=== PATIENT | female | born 1950 | race Caucasian/White ===

== ENCOUNTER 2019-08-17 13:22 | Emergency (ER) | payer BC, MEDICARE ==
[2019-08-17] MEDS ORDERED: Sodium Chloride 0.9% 10 ML Syringe FLUSH PRN (13:28)
--- NOTE | 2019-08-17 14:01 | EDM.PDOC ---
ED HPI GENERAL MEDICAL PROBLEM - General Chief Complaint: Neurological Problem Stated Complaint: STROKE Time Seen by Provider: 08/17/19 13:25 Source of Information: Reports: Family, Old Records History Limitations: Reports: Altered Mental Status - History of Present Illness INITIAL COMMENTS - FREE TEXT/NARRATIVE: 69 yo female was brought in by her for a presumed CVA with decreased use of the R arm/hand. This began about 11 am today. Upon arrival she went into a generalized seizure. says until arrival here in the ER she was otherwise normal since 11 am with the exception of the R arm/hand. No hx of seizures. Has generally been healthy in past. Onset: Today, Sudden Onset Date: 08/17/19 Onset Time: 11:00 Duration: Hour(s):, Constant Location: Reports: Upper Extremity, Right Quality: Reports: Other (pain not reported) Severity: Moderate Improves with: Reports: None Worsens with: Reports: Other (unknown) Context: Reports: Other (See HPI) Associated Symptoms: Reports: No Other Symptoms. Denies: Confusion, Chest Pain , Diaphoresis, Fever/Chills, Headaches, Nausea/Vomiting, Shortness of Breath Treatments COLORIST PHOTOGRAPHY: Reports: Other (see below) (none) - Related Data Allergies Allergy/AdvReac Type Severity Reaction Status Date / Time Penicillins Allergy Unknown Cannot Verified 08/09/16 16:11 Remember Home Meds: Home Meds Losartan [Cozaar] 50 mg PO DAILY 08/31/13 [History] Cholecalciferol (Vitamin D3) [Vitamin D] 1,000 units PO DAILY 04/08/15 [History] Multivitamin with Minerals [Multiple Vitamin] 1 tab PO DAILY 04/08/15 [History] Past Medical History HEENT History: Reports: Impaired Vision [place] History: Reports: Spontaneous Musculoskeletal History: Reports: Fracture Other Musculoskeletal History: knee Neurological History: Reports: Migraines Other Dermatologic History: spot on left cheek-benign - Infectious Disease History Infectious Disease History: Reports: Chicken Pox - Past Surgical History Other Cardiovascular Surgeries/Procedures: tetrology of fillot Social & Family History - Tobacco Use Smoking Status *Q: Former Smoker Used Tobacco, but Quit: Yes Month/Year Tobacco Last Used: 06/1969 - Caffeine Use Caffeine Use: Reports: None - Recreational Drug Use Recreational Drug Use: No ED ROS GENERAL - Review of Systems Review Of Systems: See Below (Hx per ) Constitutional: Reports: No Symptoms HEENT: Reports: No Symptoms Respiratory: Reports: No Symptoms Cardiovascular: Reports: No Symptoms Endocrine: Reports: No Symptoms GI/Abdominal: Reports: No Symptoms : Reports: No Symptoms Musculoskeletal: Reports: No Symptoms Skin: Reports: No Symptoms Neurological: Reports: Tremors (R hand today), Other (R arm/hand not working, not able to control since 11 am today). Denies: Confusion, Dizziness, Headache , Seizure (until arrival in the ER), Trouble Speaking, Difficulty Walking ED EXAM, NEURO - Physical Exam Exam: See Below Exam Limited By: No Limitations General Appearance: Severe Distress (generalized seizure followed by brief apnea with some transiet cyanosis) Eye Exam: Bilateral Eye: Normal Inspection Ears: Normal External Exam, Normal Canal, Normal TMs Nose: Normal Inspection, No Blood Throat/Mouth: Normal Inspection, Normal Lips, Normal Oropharynx, No Airway Compromise Head Exam: Atraumatic, Normocephalic Neck: Normal Inspection Respiratory/Chest: No Respiratory Distress, Lungs Clear, Normal Breath Sounds, No Accessory Muscle Use Cardiovascular: Regular Rate, Rhythm, No Edema GI/Abdominal: Normal Bowel Sounds, Soft, Non-Tender, No Distention Neurological: Other (had a self-limited generalized seizure, after resolution is confused, but no longer manifesting any focal deficits. ) Back Exam: Normal Inspection Extremities: Normal Inspection, Normal Range of Motion, Non-Tender, No Pedal Edema Skin Exam: Warm, Dry, Intact, Normal Color, No Rash EKG INTERPRETATION EKG Date: 08/17/19 Time: 13:40 Rhythm: NSR Rate (Beats/Min): 115 [place]: Normal P-Wave: Present QRS: RBBB ST-T: Depressed (lateral leads) QT: Normal Comparison: NA - No Prior EKG Course - Vital Signs Text/Narrative:: Case discussed with neurology, Dr. Tavera @ 1500h. Did well here, if neurologically fully back to normal per during her ER course. Last Recorded V/S: Last Vital Signs Temp 35.8 C L 08/17/19 13:57 Pulse 102 H 08/17/19 14:46 Resp 18 08/17/19 14:46 BP 123/62 08/17/19 14:46 Pulse Ox 100 08/17/19 14:46 - Orders/Labs/Meds Orders: Active Orders 24 hr Category Date Time Status Cardiac Monitoring [RC] .As Directed Care 08/17/19 13:29 Active EKG Documentation Completion [RC] ASDIRECTED Care 08/17/19 13:30 Active Oxygen Therapy Adult [Oxygen Therapy, ED] [RC] Care 08/17/19 13:29 Active ASDIRECTED Urinary Catheter Assessment [RC] ASDIRECTED Care 08/17/19 13:34 Inactive UA W/MICROSCOPIC [URIN] Stat Lab 08/17/19 13:28 Ordered Sodium Chloride 0.9% [Saline Flush] Med 08/17/19 13:28 Active 10 ml FLUSH ASDIRECTED PRN Saline Lock Insert [OM.PC] Routine Oth 08/17/19 13:28 Ordered EKG 12 Lead [EK] Routine Ther 08/17/19 13:29 Ordered Medication Orders Sodium Chloride (Saline Flush) 10 ml FLUSH ASDIRECTED PRN PRN Reason: Keep Vein Open Last Admin: 08/17/19 13:54 Dose: 10 ml Labs: Laboratory Tests 08/17/19 08/17/19 08/17/19 Range/Units 13:30 13:35 13:35 WBC 14.6 H (4.5-11.0) K/uL RBC 3.85 (3.30-5.50) M/uL Hgb 12.6 (12.0-15.0) g/dL Hct 39.0 (36.0-48.0) % MCV 101 H (80-98) fL MCH 33 H (27-31) pg MCHC 32 (32-36) % Plt Count 244 (150-400) K/uL Sodium 141 (140-148) mmol/L Potassium 3.0 L (3.6-5.2) mmol/L Chloride 101 (100-108) mmol/L Carbon Dioxide 14 L D (21-32) mmol/L Anion Gap 29.0 H (5.0-14.0) mmol/L BUN 8 D (7-18) mg/dL Creatinine 0.8 (0.6-1.0) mg/dL Est Cr Clr Drug Dosing TNP Estimated GFR (MDRD) > 60 (>60) Glucose 160 H (74-106) mg/dL Calcium 9.4 (8.5-10.1) mg/dL Magnesium 2.1 (1.8-2.4) mg/dL Troponin I < 0.017 (0.000-0.056) ng/mL Meds: Medications Generic Name Dose Route Start Last Admin Trade Name Freq PRN Reason Stop Dose Admin Sodium Chloride 10 ml 08/17/19 13:28 08/17/19 13:54 Saline Flush FLUSH 10 ml ASDIRECTED PRN Administration Keep Vein Open Discontinued Medications Generic Name Dose Route Start Last Admin Trade Name Freq PRN Reason Stop Dose Admin Acetaminophen 1,000 mg 08/17/19 14:19 08/17/19 14:35 Tylenol Extra Strength PO 08/17/19 14:20 1,000 mg ONETIME ONE Administration Potassium Chloride 20 meq/ 100 mls @ 50 mls/hr 08/17/19 14:23 08/17/19 14:40 Premix IV 08/17/19 16:22 50 mls/hr ONETIME ONE Administration Levetiracetam 750 mg/ Sodium 107.5 mls @ 400 mls/hr 08/17/19 14:45 08/17/19 14:41 Chloride IV 08/17/19 15:01 400 mls/hr ONETIME ONE Administration Potassium Chloride 40 meq 08/17/19 14:13 08/17/19 14:35 Potassium Chloride PO 08/17/19 14:14 40 meq ONETIME ONE Administration - Radiology Interpretation Free Text/Narrative:: Head CT -nothing acute, old cyst CT Results Date: 08/17/19 CT Results Time: 14:10 Departure - Departure Time of Disposition: 16:40 Disposition: Home, Self-Care 01 Condition: Fair Clinical Impression: Seizure, Hypokalemia - Discharge Information *PRESCRIPTION DRUG MONITORING PROGRAM REVIEWED*: No *COPY OF PRESCRIPTION DRUG MONITORING REPORT IN PATIENT RANDEE: No Instructions: Hypokalemia, Seizure, Adult, [id number] Referrals: Vinay Tavera MD [Primary Care Provider] - Forms: ED Department Discharge Additional Instructions: Take Keppra 500 mg every 12 hrs. F/U with your provider regarding getting a neurological referral. Return as needed. Eat more foods rich in potassium. Sepsis Event Note - Focused Exam Vital Signs: Vital Signs Temp Pulse Resp BP Pulse Ox Pulse Ox 08/17/19 14:46 102 H 18 123/62 100 08/17/19 13:57 35.8 C L 110 H 21 H 146/56 H 99 99 08/17/19 13:53 110 H 21 H 146/56 H 99 08/17/19 13:25 35.8 C L 126 H 15 135/43 L 98 Date Exam was Performed: 08/17/19 Time Exam was Performed: 16:33 - My Orders Last 24 Hours: My Active Orders 08/17/19 13:28 UA W/MICROSCOPIC [URIN] Stat Sodium Chloride 0.9% [Saline Flush] 10 ml FLUSH ASDIRECTED PRN Saline Lock Insert [OM.PC] Routine 08/17/19 13:29 Cardiac Monitoring [RC] .As Directed Oxygen Therapy Adult [Oxygen Therapy, ED] [RC] ASDIRECTED EKG 12 Lead [EK] Routine 08/17/19 13:30 EKG Documentation Completion [RC] ASDIRECTED 08/17/19 13:34 Urinary Catheter Assessment [RC] ASDIRECTED - Assessment/Plan Last 24 Hours: My Active Orders 08/17/19 13:28 UA W/MICROSCOPIC [URIN] Stat Sodium Chloride 0.9% [Saline Flush] 10 ml FLUSH ASDIRECTED PRN Saline Lock Insert [OM.PC] Routine 08/17/19 13:29 Cardiac Monitoring [RC] .As Directed Oxygen Therapy Adult [Oxygen Therapy, ED] [RC] ASDIRECTED EKG 12 Lead [EK] Routine 08/17/19 13:30 EKG Documentation Completion [RC] ASDIRECTED 08/17/19 13:34 Urinary Catheter Assessment [RC] ASDIRECTED
--- NOTE | 2019-08-17 14:03 | CT ---
Head wo Cont CLINICAL HISTORY: CVA, seizure COMPARISON: 2017 TECHNIQUE: Transverse scans were obtained from the base of the skull through the vertex without IV contrast on a multislice, multidetector CT scanner. A scribe dose FINDINGS: There is a large cystic focus in the left the cerebral hemisphere which may represent an arachnoid cyst. This is separate from the left ventricle. This is present and unchanged compared to 2017. There is no mass effect, hemorrhage, or extraaxial collection. The basal cisterns and sulci over the convexities are mildly prominent. The left lateral ventricles are slightly depressed the due to the cystic focus IMPRESSION: Large stable cystic focus in the left cerebral hemisphere. This likely represents an arachnoid cyst. It is unchanged from 2014 and 2017 studies No new lesions seen
[2019-08-17] MEDS ORDERED: Potassium Chloride 10 MEQ Cap.ER PO ONE (14:13)
[2019-08-17] MEDS ORDERED: Acetaminophen 500 MG Tab PO ONE (14:19)
[2019-08-17] MEDS ORDERED: Potassium Chloride 20 MEQ in Premix Bag 1 BAG IV ONE (14:23)
[2019-08-17 14:47] VITALS: BP 123/62; PULSE 102
== END 2019-08-17 17:02 | disposition home or self-care (01) ==
LOC: JP.ED 13:22
DX: R56.9 Unspecified convulsions (principal); E87.6 Hypokalemia; Z88.0 Allergy status to penicillin; Z87.891 Personal history of nicotine dependence
CPT/HCPCS: 36415; 70450; 80048; 83735; 84484; 85027; 93005; 96365; 96366; 96367; 99284; 99285; A9270; J1953; J3480; J7050; 93010

== ENCOUNTER 2020-01-07 09:25 | Emergency (ER) | payer MEDICARE ==
--- NOTE | 2020-01-07 09:44 | EDM.PDOC ---
ED HPI GENERAL MEDICAL PROBLEM - General Chief Complaint: Neurological Problem Stated Complaint: MEDICAL VIA [place] Time Seen by Provider: 01/07/20 09:35 Source of Information: Reports: EMS, Family History Limitations: Reports: Other (expressive aphasia) - History of Present Illness INITIAL COMMENTS - FREE TEXT/NARRATIVE: left home at 7:10 am today and returned at about 8:43am to find his down. EMS was called and found her to have difficulty with expressing herself. Seems to indicate a NUNEZ. BP low. BS OK. Sinus tach per EKG. Recent R shoulder surgery at [facility] so does not yet have a full ROM. Patient states she has never had a seizure and is no longer on Keppra. 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 Onset: Today Onset Date: 01/07/20 Onset Time: 07:10 (? up to 0843h) Duration: Minutes:, Getting Worse Location: Reports: Head Quality: Reports: Ache Severity: Moderate Improves with: Reports: None Worsens with: Reports: Other (? time) Context: Reports: Other (See HPI) Associated Symptoms: Reports: Headaches, Other (neuro deficit) Treatments QUARRY PLUG AND FEATHER DRILLER: Reports: Other (see below) (None) Left Temporal Headache Pain Score (Numeric/FACES): 8 - Related Data Allergies Allergy/AdvReac Type Severity Reaction Status Date / Time Penicillins Allergy Unknown Cannot Verified 08/09/16 16:11 Remember Home Meds: Home Meds Losartan [Cozaar] 50 mg PO DAILY 08/31/13 [History] Cholecalciferol (Vitamin D3) [Vitamin D] 1,000 units PO DAILY 04/08/15 [History] Multivitamin with Minerals [Multiple Vitamin] 1 tab PO DAILY 04/08/15 [History] Past Medical History HEENT History: Reports: Impaired Vision [employer] History: Reports: Spontaneous Musculoskeletal History: Reports: Fracture Other Musculoskeletal History: knee Neurological History: Reports: Migraines Other Dermatologic History: spot on left cheek-benign - Infectious Disease History Infectious Disease History: Reports: Chicken Pox - Past Surgical History Other Cardiovascular Surgeries/Procedures: tetrology of fillot Social & Family History - Caffeine Use Caffeine Use: Reports: None ED ROS GENERAL - Review of Systems Review Of Systems: Comprehensive ROS is negative, except as noted in HPI. (expressive aphasia) Constitutional: Reports: No Symptoms HEENT: Reports: No Symptoms Neurological: Reports: Headache (L sided), Change in Speech (expressive aphasia for EMS, clearing in the ER) Psychiatric: Reports: No Symptoms ED EXAM, NEURO - Physical Exam Exam: See Below Exam Limited By: No Limitations General Appearance: Alert, WD/WN, No Apparent Distress, Thin Eye Exam: Right Eye: Proptosis, Bilateral Eye: Abnormal EOM Ears: Normal External Exam, Normal Canal, Hearing Grossly Normal, Normal TMs Nose: Normal Inspection, No Blood Throat/Mouth: Normal Inspection, Normal Lips, Normal Oropharynx, Normal Voice, No Airway Compromise, Other (voice is hoarse, not new. Able to swallow water without choking.) Head Exam: Atraumatic, Normocephalic Neck: Normal Inspection Respiratory/Chest: No Respiratory Distress, Lungs Clear, Normal Breath Sounds, No Accessory Muscle Use Cardiovascular: Regular Rate, Rhythm, No Edema, Tachycardia GI/Abdominal: Normal Bowel Sounds, Soft, Non-Tender, No Distention Neurological: Alert, Normal Mood/Affect, CN II-XII Intact, No Motor/Sensory Deficits, Oriented x 3 Extremities: Normal Inspection, Normal Range of Motion, Non-Tender, No Pedal Edema, Limited Range of Motion (R shoulder only) Psychiatric: Normal Affect, Normal Mood Skin Exam: Warm, Dry, Intact, Normal Color, No Rash EKG INTERPRETATION EKG Date: 01/07/20 Time: 09:45 Rhythm: NSR Rate (Beats/Min): 109 [place]: Normal P-Wave: Present QRS: RBBB ST-T: Normal QT: Normal Comparison: No Change Course - Vital Signs Text/Narrative:: Discussed with stroke neurologist at [facility] twice, the 2nd time @ 1210h. Accepts in transfer. Last Recorded V/S: Last Vital Signs Temp 35.9 C L 01/07/20 09:48 Pulse 110 H 01/07/20 10:32 Resp 20 01/07/20 10:32 BP 139/48 L 01/07/20 10:32 Pulse Ox 100 01/07/20 10:32 - Orders/Labs/Meds Orders: Active Orders 24 hr Category Date Time Status Cardiac Monitoring [RC] .As Directed Care 01/07/20 09:34 Active EKG Documentation Completion [RC] ASDIRECTED Care 01/07/20 09:34 Active UA W/MICROSCOPIC [URIN] Stat Lab 01/07/20 09:34 Ordered Iopamidol [Isovue-370 (76%)] Med 01/07/20 10:45 Active 100 ml IV . DIRECTED Sodium Chloride 0.9% [Saline Flush] Med 01/07/20 10:33 Active 10 ml FLUSH ONETIME PRN EKG 12 Lead [EK] Routine Ther 01/07/20 09:34 Ordered Medication Orders Iopamidol (Isovue-370 (76%)) 100 ml IV . DIRECTED [facility] Last Admin: 01/07/20 11:04 Dose: 100 ml Documented by: ARLETH Sodium Chloride (Saline Flush) 10 ml FLUSH ONETIME PRN PRN Reason: PER RADIOLOGY PROTOCOL Last Admin: 01/07/20 11:04 Dose: 10 ml Documented by: ARLETH Labs: Laboratory Tests 01/07/20 01/07/20 Range/Units 09:40 09:40 WBC 14.6 H (4.5-11.0) K/uL RBC 4.20 (3.30-5.50) M/uL Hgb 13.4 (12.0-15.0) g/dL Hct 40.4 (36.0-48.0) % MCV 96 (80-98) fL MCH 32 H (27-31) pg MCHC 33 (32-36) % Plt Count 147 L (150-400) K/uL Sodium 137 L (140-148) mmol/L Potassium 4.0 (3.6-5.2) mmol/L Chloride 99 L (100-108) mmol/L Carbon Dioxide 25 (21-32) mmol/L Anion Gap 17.0 H (5.0-14.0) mmol/L BUN 16 D (7-18) mg/dL Creatinine 0.9 (0.6-1.0) mg/dL Est Cr Clr Drug Dosing TNP Estimated GFR (MDRD) > 60 (>60) Glucose 199 H (74-106) mg/dL Calcium 9.9 (8.5-10.1) mg/dL Troponin I 0.082 H* (0.000-0.056) ng/mL Meds: Medications Generic Name Dose Route Start Last Admin Trade Name Freq PRN Reason Stop Dose Admin Iopamidol 100 ml 01/07/20 10:45 01/07/20 11:04 Isovue-370 (76%) IV 100 ml . DIRECTED LOS Administration Sodium Chloride 10 ml 01/07/20 10:33 01/07/20 11:04 Saline Flush FLUSH 10 ml ONETIME PRN Administration PER RADIOLOGY PROTOCOL Discontinued Medications Generic Name Dose Route Start Last Admin Trade Name Freq PRN Reason Stop Dose Admin Acetaminophen 1,000 mg 01/07/20 09:53 01/07/20 09:56 Tylenol Extra Strength PO 01/07/20 09:54 1,000 mg ONETIME ONE Administration Sodium Chloride 100 mls @ 3 mls/sec 01/07/20 10:33 01/07/20 11:04 Normal Saline IV 01/07/20 10:34 3 mls/sec ONETIME ONE Administration - Radiology Interpretation Free Text/Narrative:: Head CT scan without contrast-no acute changes CTA head and neck-See report CT Results Date: 01/07/20 CT Results Time: 10:00 Departure - Departure Time of Disposition: 12:30 Disposition: DC/Tfer to Acute Hospital 02 Condition: Fair Clinical Impression: TIA (transient ischemic attack), Elevated troponin, Elevated glucose level Syncope Qualifiers: Syncope type: unspecified Qualified Code(s): R55 - Syncope and collapse - Discharge Information Referrals: PCP,None [Primary Care Provider] - Forms: ED Department Discharge Sepsis Event Note (ED) - Focused Exam Vital Signs: Vital Signs Temp Pulse Resp BP Pulse Ox 01/07/20 10:32 110 H 20 139/48 L 100 01/07/20 10:17 109 H 26 H 139/48 L 100 01/07/20 10:02 109 H 25 H 139/51 L 100 01/07/20 09:48 35.9 C L 111 H 22 H 135/50 L 100 01/07/20 09:47 111 H 29 H 135/50 L 100 01/07/20 09:32 118 H 20 126/64 97 - My Orders Last 24 Hours: My Active Orders 01/07/20 09:34 Cardiac Monitoring [RC] .As Directed EKG Documentation Completion [RC] ASDIRECTED UA W/MICROSCOPIC [URIN] Stat EKG 12 Lead [EK] Routine 01/07/20 10:33 Sodium Chloride 0.9% [Saline Flush] 10 ml FLUSH ONETIME PRN 01/07/20 10:45 Iopamidol [Isovue-370 (76%)] 100 ml IV . DIRECTED - Assessment/Plan Last 24 Hours: My Active Orders 01/07/20 09:34 Cardiac Monitoring [RC] .As Directed EKG Documentation Completion [RC] ASDIRECTED UA W/MICROSCOPIC [URIN] Stat EKG 12 Lead [EK] Routine 01/07/20 10:33 Sodium Chloride 0.9% [Saline Flush] 10 ml FLUSH ONETIME PRN 01/07/20 10:45 Iopamidol [Isovue-370 (76%)] 100 ml IV . DIRECTED
[2020-01-07] MEDS ORDERED: Acetaminophen 500 MG Tab PO ONE (09:53)
--- NOTE | 2020-01-07 10:14 | CT ---
Head wo Cont CLINICAL HISTORY: Strokelike symptoms COMPARISON: 08/17/2019 and 08/09/2016 TECHNIQUE: Transverse scans were obtained from the base of the skull through the vertex without IV contrast on a multislice, multidetector CT scanner. Prescribed dose FINDINGS: There is a large cyst in the high left parietal lobe measuring 7.3 x 4.7 x 5.4 cm. This is essentially unchanged since July 2019. There has been interval increase in size since 2017.. This does cause some downward displacement of the left lateral ventricle. This appearance is unchanged since prior study. There is no shift of the midline. There is no mass effect, hemorrhage, or extraaxial collection. The basal cisterns and sulci over the convexities are mildly prominent. IMPRESSION: Stable, large left parietal arachnoid cyst when compared to July 2019 There has been some interval growth since 2017 Age-related atrophy
[2020-01-07] MEDS ORDERED: Sodium Chloride 0.9% 10 ML Syringe FLUSH PRN (10:33)
[2020-01-07] MEDS ORDERED: Sodium Chloride 0.9% 100 ML IV ONE (10:33)
[2020-01-07] MEDS ORDERED: Iopamidol 755 Mg/ML 100 ML Bottle IV SCH (10:45)
[2020-01-07 10:51] VITALS: PULSE 110
--- NOTE | 2020-01-07 11:46 | CT ---
Ang Neck, CLINICAL HISTORY: Expressive aphasia TECHNIQUE: Multiple axial images were obtained through the neck without and with the IV infusion of iodinated contrast. From these images sagittal, coronal, and 3D reconstructions of the aortic arch and carotids were obtained and viewed on a dedicated and independent workstation. NASCET criteria is used. Auto dosage reduction and iterative reconstruction techniques employed. FINDINGS: The proximal brachycephalic vessels are mildly tortuous. The innominate right subclavian and right the common carotid arteries have normal course and caliber. Right vertebral artery is patent the along its length to the basilar artery. Left common carotid has a normal course and contour. Left subclavian artery is occluded in its proximal portion. There is flow from the left thyrocervical trunk. The the proximal portion of the left vertebral artery is not identified. There is moderate streak artifact from brachiocephalic vein contrast. There is some calcified plaque in both carotid bifurcations. There is no significant ICA stenosis on either side. There is [id number] right ECA stenosis at the origin. 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 There appears to be occlusion of the proximal vertebral artery. This area is moderately obscured by streak artifact from dense contrast in the brachycephalic vein. Findings should be correlated with Doppler study. Mild plaque in both carotid bifurcations with no significant ICA stenosis Mild right ECA stenosis Ang Neck, Ang Head CLINICAL HISTORY: Syncope, expressive aphasia. COMPARISON: None TECHNIQUE: Multiple volume rendered and MIP 3D reconstructions were generated from source images obtained on a spiral scanner before and after intravenous iodinated contrast enhancement . Auto dosage reduction and iterative reconstruction techniques employed. FINDINGS: Internal carotid arteries: There is some hard plaque in the carotid siphons bilaterally. Anterior cerebral arteries: There is a small right A1 segment. There is a single A2 segment. There is a patent anterior communicating artery Middle cerebral arteries: Normal course and contour Posterior cerebral arteries: There is persistent circulation bilaterally. Vertebral/basilar arteries: There are small vertebral and a small basilar artery which services the cerebellar arteries IMPRESSION: Calcified plaque in both carotid siphons Persistent circulation bilaterally Small vertebrobasilar system services the cerebellar arteries Large arachnoid cyst left parietal lobe described on CT
[2020-01-07 12:35] VITALS: BP 115/94
== END 2020-01-07 14:05 ==
LOC: JP.ED 09:25
DX: G45.9 Transient cerebral ischemic attack, unspecified (principal); R79.89 Other specified abnormal findings of blood chemistry; R73.09 Other abnormal glucose; Z88.0 Allergy status to penicillin; Z79.899 Other long term (current) drug therapy
CPT/HCPCS: 36415; 70450; 70496; 70498; 80048; 81001; 84484; 85027; 93005; 99285; A9270; J7050; Q9967; 93010

== ENCOUNTER 2020-04-20 09:13 | Emergency (ER) | payer MEDICARE ==
[2020-04-20] MEDS ORDERED: Sodium Chloride 0.9% 10 ML Syringe FLUSH PRN (09:43)
[2020-04-20] MEDS ORDERED: Sodium Chloride 0.9% 10 ML Syringe FLUSH ONE (10:11)
--- NOTE | 2020-04-20 10:12 | EDM.PDOC ---
ED HPI GENERAL MEDICAL PROBLEM - General Chief Complaint: Headache Stated Complaint: DIZZY,HEADACHES Time Seen by Provider: 04/20/20 09:38 Source of Information: Reports: Patient, Old Records History Limitations: Reports: No Limitations - History of Present Illness INITIAL COMMENTS - FREE TEXT/NARRATIVE: He is a 70-year-old female presenting to the ED for evaluation of severe he adache on the left side accompanied by right-sided weakness that started at 7 AM this morning. Patient was in her usual state of health when her symptoms began. She had a history of a TIA involving the same distribution back in December with a work-up and has been on a baby aspirin ever since. She stated that she was having difficulty walking because of the right leg weakness. She noticed that her headache has significantly worsened since the onset of her symptoms. While in the ED, she noted that she cannot see anything in the right visual field. She was not aware of this prior to the ED. She is complaining of a significant constant headache associated with nausea but no vomiting. Onset: Today, Sudden Location: Reports: Head Quality: Reports: Throbbing Improves with: Reports: None Worsens with: Reports: None Associated Symptoms: Reports: Headaches, Weakness - Related Data Allergies Allergy/AdvReac Type Severity Reaction Status Date / Time Penicillins Allergy Unknown Cannot Verified 08/09/16 16:11 Remember Home Meds: Home Meds Cholecalciferol (Vitamin D3) [Vitamin D] 1,000 units PO DAILY 04/08/15 [History] Multivitamin with Minerals [Multiple Vitamin] 1 tab PO DAILY 04/08/15 [History] Aspirin 81 mg PO DAILY 04/20/20 [History] Past Medical History HEENT History: Reports: Impaired 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 Musculoskeletal History: Reports: Fracture Other Musculoskeletal History: knee Neurological History: Reports: Migraines Other Dermatologic History: spot on left cheek-benign - Infectious Disease History Infectious Disease History: Reports: Chicken Pox - Past Surgical History Other Cardiovascular Surgeries/Procedures: tetrology of fillot Musculoskeletal Surgical History: Reports: Shoulder Replacement Social & Family History - Tobacco Use Tobacco Use Status *Q: Never Tobacco User - Caffeine Use Caffeine Use: Reports: Coffee ED ROS GENERAL - Review of Systems Review Of Systems: See Below Constitutional: Reports: No Symptoms HEENT: Reports: Vision Change (Unable to see anything on the right side) Respiratory: Reports: No Symptoms Cardiovascular: Reports: No Symptoms Endocrine: Reports: No Symptoms GI/Abdominal: Reports: Nausea : Reports: No Symptoms Musculoskeletal: Reports: No Symptoms Skin: Reports: No Symptoms Neurological: Reports: Headache (Severe left-sided), Difficulty Walking, Weakness (Right-sided upper and lower extremity) Psychiatric: Reports: No Symptoms Hematologic/Lymphatic: Reports: No Symptoms Immunologic: Reports: No Symptoms - Physical Exam Exam: See Below Exam Limited By: No Limitations General Appearance: Alert, Anxious, Mild Distress Eye Exam: Bilateral Eye: PERRL Throat/Mouth: Normal Inspection, Normal Lips, Normal Teeth, Normal Gums, Normal Oropharynx, Normal Voice, No Airway Compromise Head Exam: Atraumatic, Normocephalic Neck: Normal Inspection, Supple, Non-Tender, Full Range of Motion, Carotid Bruit (Left-sided) Respiratory/Chest: No Respiratory Distress, Lungs Clear, Normal Breath Sounds, No Accessory Muscle Use, Chest Non-Tender Cardiovascular: Normal Peripheral Pulses, Regular Rate, Rhythm, No Edema, No Gallop, No JVD, No Murmur, No Rub, Systolic Murmur (3/6 holosystolic murmur heard at the apex and left anterior chest consistent with mitral regurgitation.) GI/Abdominal: Normal Bowel Sounds, Soft, Non-Tender, No Organomegaly, No Distention, No Abnormal Bruit, No Mass, Pelvis Stable Neuro Exam (Abbreviated): Alert, Oriented, CN II-XII Intact, Normal Cognition, Sensory/Motor Deficit (Right upper and lower extremity weakness), Other (Right homonimous hemianopsia) Back Exam: Normal Inspection, Full Range of Motion Extremities: Normal Inspection, Normal Range of Motion, Non-Tender, No Pedal Edema, Normal Capillary Refill Psychiatric: Normal Affect, Normal Mood Skin Exam: Warm, Dry, Intact, Normal Color, No Rash #1 Interpretation EKG Date: 04/20/20 Time: 10:02 Rhythm: NSR Rate (Beats/Min): 96 [place]: Normal P-Wave: Enlarged QRS: RBBB ST-T: Normal QT: Prolonged Course - Vital Signs Last Recorded V/S: Last Vital Signs Temp 36.6 C 04/20/20 09:21 Pulse 94 04/20/20 11:16 Resp 21 H 04/20/20 11:16 BP 106/57 L 04/20/20 11:16 Pulse Ox 95 04/20/20 11:16 - Orders/Labs/Meds Orders: Active Orders 24 hr Category Date Time Status EKG Documentation Completion [RC] ASDIRECTED Care 04/20/20 09:43 Active Iopamidol [Isovue-370 (76%)] Med 04/20/20 10:15 Active 100 ml IV . DIRECTED Sodium Chloride 0.9% [Normal Saline] 100 ml Med 04/20/20 10:15 Active IV ASDIRECTED Sodium Chloride 0.9% [Saline Flush] Med 04/20/20 09:43 Active 10 ml FLUSH ASDIRECTED PRN PT Screening [OM.PC] Routine Oth 04/20/20 09:40 Active Saline Lock Insert [OM.PC] Routine Oth 04/20/20 09:43 Ordered EKG 12 Lead [EK] Routine Ther 04/20/20 09:42 Ordered Medication Orders Sodium Chloride (Normal Saline) 100 mls @ 3.5 mls/sec IV ASDIRECTED LOS Stop: 04/20/20 12:00 Last Admin: 04/20/20 10:17 Dose: 4 mls/sec Documented by: TEE Iopamidol (Isovue-370 (76%)) 100 ml IV . DIRECTED LOS Last Admin: 04/20/20 10:16 Dose: 100 ml Documented by: TEE Sodium Chloride (Saline Flush) 10 ml FLUSH ASDIRECTED PRN PRN Reason: Keep Vein Open Last Admin: 04/20/20 10:07 Dose: 10 ml Documented by: [id number] Labs: Laboratory Tests 04/20/20 04/20/20 04/20/20 Range/Units 10:25 10:25 10:25 WBC 11.5 H (4.5-11.0) K/uL RBC 3.55 (3.30-5.50) M/uL Hgb 11.0 L D (12.0-15.0) g/dL Hct 34.6 L (36.0-48.0) % MCV 98 (80-98) fL MCH 31 (27-31) pg MCHC 32 (32-36) % Plt Count 202 (150-400) K/uL Neut % (Auto) 91 H (36-66) % Lymph % (Auto) 6 L (24-44) % [place] % (Auto) 3 (2-6) % Eos % (Auto) 0 L (2-4) % Baso % (Auto) 0 (0-1) % APTT 22.2 L (27.0-36.0) sec Sodium 133 L (140-148) mmol/L Potassium 3.8 (3.6-5.2) mmol/L Chloride 99 L (100-108) mmol/L Carbon Dioxide 27 (21-32) mmol/L Anion Gap 10.8 (5.0-14.0) mmol/L BUN 14 (7-18) mg/dL Creatinine 0.7 (0.6-1.0) mg/dL Est Cr Clr Drug Dosing 52.78 mL/min Estimated GFR (MDRD) > 60 (>60) Glucose 130 H (74-106) mg/dL Calcium 8.8 (8.5-10.1) mg/dL Total Bilirubin 0.2 (0.2-1.0) mg/dL AST 29 (15-37) U/L ALT 21 (12-78) U/L Alkaline Phosphatase 46 (46-116) U/L Total Protein 6.0 L (6.4-8.2) g/dL Albumin 3.2 L (3.4-5.0) g/dL Globulin 2.8 (2.3-3.5) g/dL Albumin/Globulin Ratio 1.1 L (1.2-2.2) Meds: Medications Generic Name Dose Route Start Last Admin Trade Name Freq PRN Reason Stop Dose Admin Sodium Chloride 100 mls @ 3.5 mls/sec 04/20/20 10:15 04/20/20 10:17 Normal Saline IV 04/20/20 12:00 4 mls/sec ASDIRECTED LOS Administration Iopamidol 100 ml 04/20/20 10:15 04/20/20 10:16 Isovue-370 (76%) IV 100 ml . DIRECTED LOS Administration Sodium Chloride 10 ml 04/20/20 09:43 04/20/20 10:07 Saline Flush FLUSH 10 ml ASDIRECTED PRN Administration Keep Vein Open Discontinued Medications Generic Name Dose Route Start Last Admin Trade Name Freq PRN Reason Stop Dose Admin Hydromorphone HCl 0.5 mg 04/20/20 11:23 04/20/20 11:28 Dilaudid IVPUSH 04/20/20 11:24 0.5 mg ONETIME ONE Administration Ondansetron HCl 4 mg 04/20/20 11:23 04/20/20 11:28 Zofran IVPUSH 04/20/20 11:24 4 mg ONETIME ONE Administration Sodium Chloride 10 ml 04/20/20 10:11 04/20/20 10:17 Saline Flush FLUSH 04/20/20 10:12 10 ml ONETIME ONE Administration - Re-Assessments/Exams Free Text/Narrative Re-Assessment/Exam: 04/20/20 11:52 I discussed the case with Dr. Taveras from neurosurgery at [facility] who sees this patient ongoing. He reviewed the images that were obtained today including the CT angio of the head and neck and CT of the brain without. He does not feel that the arachnoid cyst has enlarged enough to account for her symptoms, however, he does not feel that she needs to emergently come over today and recommends that she follow-up with him in the clinic on Saturday. We will arrange that follow-up appointment for the patient. In the meantime, the patient received Dilaudid 0.5 mg IV and Zofran 4 mg IV with significant improvement in her headache. I did discuss with the neurosurgeon the fact that the patient has an acute right-sided homonymous hemianopsia and right-sided weakness. He did not seem concerned by this and stated that it could wait till follow-up. This was discussed with the patient and her who are in agreement with the plan. At this time she is suitable for discharge home in satisfactory condition. Return to the ED were discussed. All questions were answered prior to discharge. Departure - Departure Time of Disposition: 12:02 Disposition: Home, Self-Care 01 Clinical Impression: Migraine, Transient neurological symptoms, Right homonymous hemianopsia, Right sided weakness, Intracranial arachnoid cyst - Discharge Information *PRESCRIPTION DRUG MONITORING PROGRAM REVIEWED*: Not Applicable *COPY OF PRESCRIPTION DRUG MONITORING REPORT IN PATIENT RANDEE: Not Applicable Instructions: Weakness, [id number] Referrals: Vinay Tavera MD [Primary Care Provider] - Forms: ED Department Discharge Care Plan Goals: I have arranged for a follow-up for you with Dr. Taveras in [place] with [facility] for April 22 at 10 AM. This will be to discuss options for treatment of the arachnoid cyst in your symptoms. If you should develop worsening symptoms prior to this please return to the ED for reevaluation. Sepsis Event Note (ED) - Evaluation Sepsis Screening Result: No Definite Risk - Focused Exam Vital Signs: Vital Signs Temp Pulse Resp BP Pulse Ox 04/20/20 11:16 94 21 H 106/57 L 95 04/20/20 10:46 96 22 H 101/53 L 96 04/20/20 10:02 98 20 99/58 L 96 04/20/20 09:21 36.6 C 106 H 16 115/65 96 04/20/20 09:20 36.6 C 106 H 16 115/65 96 - Problem List & Annotations (1) Transient neurological symptoms SNOMED Code(s): 835232733 Code(s): R29.818 - OTHER SYMPTOMS AND SIGNS INVOLVING THE NERVOUS SYSTEM Status: Acute Priority: High Current Visit: Yes (2) Intracranial arachnoid cyst SNOMED Code(s): 645634188 Code(s): G93.0 - CEREBRAL CYSTS Status: Chronic Priority: Medium Current Visit: Yes (3) Migraine SNOMED Code(s): 36448732 Code(s): G43.909 - MIGRAINE, UNSP, NOT INTRACTABLE, WITHOUT STATUS MIGRAINOSUS Status: Acute Priority: High Current Visit: Yes (4) Right homonymous hemianopsia SNOMED Code(s): 1750031 Code(s): H53.461 - HOMONYMOUS BILATERAL FIELD DEFECTS, RIGHT SIDE Status: Acute Priority: High Current Visit: Yes (5) Right sided weakness SNOMED Code(s): 891339399 Code(s): R53.1 - WEAKNESS Status: Acute Priority: High Current Visit: Yes - Problem List Review Problem List Initiated/Reviewed/Updated: Yes - My Orders Last 24 Hours: My Active Orders 04/20/20 09:40 PT Screening [OM.PC] Routine 04/20/20 09:42 EKG 12 Lead [EK] Routine 04/20/20 09:43 EKG Documentation Completion [RC] ASDIRECTED Sodium Chloride 0.9% [Saline Flush] 10 ml FLUSH ASDIRECTED PRN Saline Lock Insert [OM.PC] Routine 04/20/20 10:15 Iopamidol [Isovue-370 (76%)] 100 ml IV . DIRECTED Sodium Chloride 0.9% [Normal Saline] 100 ml IV ASDIRECTED - Assessment/Plan Last 24 Hours: My Active Orders 04/20/20 09:40 PT Screening [OM.PC] Routine 04/20/20 09:42 EKG 12 Lead [EK] Routine 04/20/20 09:43 EKG Documentation Completion [RC] ASDIRECTED Sodium Chloride 0.9% [Saline Flush] 10 ml FLUSH ASDIRECTED PRN Saline Lock Insert [OM.PC] Routine 04/20/20 10:15 Iopamidol [Isovue-370 (76%)] 100 ml IV . DIRECTED Sodium Chloride 0.9% [Normal Saline] 100 ml IV ASDIRECTED
[2020-04-20] MEDS ORDERED: Sodium Chloride 0.9% 100 ML IV SCH (10:15)
[2020-04-20] MEDS ORDERED: Iopamidol 755 Mg/ML 100 ML Bottle IV SCH (10:15)
--- NOTE | 2020-04-20 11:14 | CT ---
Head wo Cont CLINICAL HISTORY: Acute headache, visual field loss, right hemianopsia COMPARISON: CT 2017 MRI 01/07/2020 TECHNIQUE: Transverse scans were obtained from the base of the skull through the vertex without IV contrast on a multislice, multidetector CT scanner. Auto dosage reduction and iterative reconstruction techniques employed. FINDINGS: There is a large CSF density in the left occipital lobe currently measuring 7.8 x 4.6 x 5.4 cm. This has increased in size since the December study. There is some mass effect on the left hemispheres parenchyma. There is some downward the depression of the left lateral ventricle. There is some depression of the tentorium on the left. Patient has moderate generalized atrophy. There is a small lacunar-type infarct in right basal ganglia thalamic junction unchanged from 2017. IMPRESSION: Large arachnoid cyst occupying the left occipital lobe with mass effect on the left cerebral hemisphere. This has increased in size since January 11, 2020. Old lacunar-type infarct right basal ganglia Age-related atrophy
[2020-04-20] MEDS ORDERED: HYDROmorphone 0.5 MG/0.5 ML Syringe IVPUSH ONE (11:23)
[2020-04-20] MEDS ORDERED: Ondansetron 4 MG/2 ML SDV IVPUSH ONE (11:23)
[2020-04-20 11:30] VITALS: BP 106/57; PULSE 94
--- NOTE | 2020-04-20 11:40 | CT ---
Ang Head, Ang Neck CLINICAL HISTORY: Right visual field loss. COMPARISON: MR brain TECHNIQUE: Multiple volume rendered and MIP 3D reconstructions were generated from source images obtained on a spiral scanner before and after intravenous iodinated contrast enhancement . Auto dosage reduction and iterative reconstruction techniques employed. FINDINGS: Internal carotid arteries: Have a normal course and caliber Anterior cerebral arteries: There is a very small A1 segment on the right. There is a patent anterior communicating artery. There is a single 82 segment. This is similar to the recent MRA. Middle cerebral arteries: Normal course and contour Posterior cerebral arteries: Both posterior cerebral arteries are served as by the carotid circulation. This is previously described Vertebral/basilar arteries: There are 2 vertebral arteries which join a small basilar artery. Basilar artery ends at the superior cerebellar arteries IMPRESSION: Variant of persistent circulation described previously. There is no significant change. No significant stenosis or aneurysm identified. Left occipital arachnoid cyst causes some mass effect on the vessels and parenchyma Ang Neck CLINICAL HISTORY: Visual field loss TECHNIQUE: Multiple axial images were obtained through the neck without and with the IV infusion of iodinated contrast. From these images sagittal, coronal, and 3D reconstructions of the aortic arch and carotids were obtained and viewed on a dedicated and independent workstation. NASCET criteria is used. Auto dosage reduction and iterative reconstruction techniques employed. FINDINGS: There is dilatation of the ascending aorta measuring 4.3 x 4.4 cm in diameter. There is no evidence of dissection.. There is a large atheromatous plaque near the origin of the innominate artery and left common carotid artery. It is a bovine arch configuration. The left subclavian artery is occluded at its origin. The mid to distal left subclavian artery is fed from a left vertebral remanent and the thyrocervical trunk.. Both common carotid arteries are patent. There is hard plaque in both carotid bifurcations. There is mild stenosis of the right ICA origin. There is a section of the proximal to mid right ICA which is obscured by artifact from dental amalgam. 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 It fills distally via predominantly the thyrocervical trunk. There is a very small left vertebral artery. Moderate hard plaque in both carotid bifurcations with mild right ICA origin stenosis
== END 2020-04-20 12:41 | disposition home or self-care (01) ==
LOC: JP.ED 09:13
DX: G43.909 Migraine, unspecified, not intractable, without status migrainosus (principal); H53.461 Homonymous bilateral field defects, right side; G93.0 Cerebral cysts; Z88.0 Allergy status to penicillin; Z79.82 Long term (current) use of aspirin
CPT/HCPCS: 36415; 70450; 70496; 70498; 80053; 85025; 85730; 93005; 96374; 96375; 99285; J1170; J2405; Q9967